=== PATIENT | male | born 1975 | race African-American/Black ===

== ENCOUNTER 2020-10-23 23:02 | Inpatient (IN) | payer SELFPAY ==
[2020-10-23] MEDS ORDERED: levETIRAcetam 500 MG/100 ML PREMIX BAG ONE (23:26)
[2020-10-23] MEDS ORDERED: Lorazepam 2 MG/ML VIAL ONE ×2 (23:26→23:38)
[2020-10-23] MEDS ORDERED: Diazepam 5 MG TAB ONE (23:44)
[2020-10-24 00:23] LABS: #Lymphocytes 0.8 thou/uL (1.20-3.40); #Monocytes 0.9 thou/uL (0.11-0.59); #Neutrophils 6.8 thou/uL (1.40-6.50); %Basophils 0.5 % (0.0-1.0); %Eosinophils 0.2 % (0.0-10.0); %Lymphocytes 9.8 % (21.0-51.0); %Monocytes 10.7 % (0.0-10.0); %Neutrophils 78.8 % (42.0-75.0); Mean Corpuscular HGB CONC 34.5 g/dL (32.0-36.0); Mean Corpuscular Hemoglobin 34.7 pg (27.0-31.0); Mean Platelet Volume 8.3 fL (7.4-10.4); Platelet Count 127 thou/uL (130-400); RBC Distribution Width 13.9 % (11.5-14.5); Red Blood Cell (RBC) Count 3.74 mill/uL (4.70-6.10); White Blood Cell (WBC) Count 8.6 thou/uL (4.8-10.8)
[2020-10-24 00:55] LABS: ALT (SGPT) 20 U/L (8-55); AST (SGOT) 73 U/L (5-34); Albumin 3.9 g/dL (3.5-5.0); Alkaline Phosphatase 112 U/L (40-110); Anion Gap 28 mmol/L (10-20); BUN (Urea Nitrogen) 5 mg/dL (8.9-20.6); Bilirubin, Total 0.7 mg/dL (0.2-1.2); Calc. Creatinine Clearance 0 mL/min (70-130); Carbon Dioxide 12 mmol/L (22-29); Chloride 103 mmol/L (98-107); Globulin 3.1 g/dL (2.4-3.5); Glucose 113 mg/dL (70-105); Potassium 3.5 mmol/L (3.5-5.1); Sodium 139 mmol/L (136-145)
[2020-10-24 01:05] LABS: Acetaminophen Less than 6.0 mcg/mL (10.0-30.0); Alcohol Less than 10 mg/dL (Less than 10); Salicylate Less than 8.0 mg/dL (15.0-30.0)
[2020-10-24 02:06] LABS: Amphetamine Not Detected (NotDetected); Barbiturates Screen Not Detected (NotDetected); Benzodiazepine Screen Not Detected (NotDetected); Cocaine Metabolite Screen Not Detected (NotDetected); Medtox Control Line Valid? VALID (VALID); Medtox Reader # READER 4; Methadone Not Detected (NotDetected); Methamphetamine Not Detected (NotDetected); Opiate Screen Not Detected (NotDetected); Oxycodone Screen Not Detected (NotDetected); Phencyclidine (PCP) Not Detected (NotDetected); THC/Cannabinoid Screen Not Detected (NotDetected); Tricyclic Screen Not Detected (NotDetected)
[2020-10-24] MEDS ORDERED: Ondansetron ODT 4 MG TAB PO PRN (06:20)
[2020-10-24] MEDS ORDERED: Ondansetron PF 4 MG/2 ML Vial IVP PRN (06:20)
--- NOTE | 2020-10-24 06:38 | PDOC.HHP ---
Hospitalist HPI Seizures History of Present Illness: This is a 45-year-old male patient hypertension and alcohol abuse who presents o n account of his seizure. He had a fair seizure at home which was witnessed by his . He notes that he only bit his tongue. According to the EMS records he had a seizure for about 2 minutes with high blood pressures of systolic about 235 for which he received labetalol with improvement. His glucose at the time was 117. On arrival in the ED he had another episode of seizure which was witnessed. His vitals were 201/126, pulse 115, temperature 98.5 and saturating 1% on room air. His labs showed anemia of 13.0 platelets 127 bicarb 12 glucose 113 and anion gap was 24 urine drug screen salicylate and acetaminophen levels were normal. Alcohol level was less than 10. Patient notes that his last drink was about a day ago consisting of 2 beers. He however is a chronic alcohol user and drinks every day. No acute events were noted on CT head and neck patient received 1 L bolus normal saline 10 mg diazepam and lorazepam in relation to his seizures. Patient has been seizure-free since his been in the ED. Allergies/Adverse Reactions: Allergy/AdvReac Type Severity Reaction Status Date / Time lisinopril Allergy Verified 04/11/15 07:06 Home Medications: Medication Instructions Recorded Confirmed Type Amlodipine [Norvasc] 10 mg PO DAILY #0 tab 04/11/15 Rx Metoprolol Tartrate 25 mg PO BID #0 tab 04/11/15 Rx Pantoprazole [Protonix] 40 mg PO QAM #0 tab 04/11/15 Rx predniSONE 10 mg PO QAM-WM #0 tab 04/11/15 Rx Past History: PMHx: Alcoholism, hypertension PSHx: Skin graft to fluids. FHx: None of significance Social: Alcohol abuse, ongoing smoker, denies drug use. Hospitalist HPI ROS Constitutional: reports: weakness, malaise. denies: fever, chills, sweats Respiratory: denies: cough, shortness of breath, hemoptysis, SOB with excertion Cardiovascular: denies: chest pain, palpitations, orthopnea, paroxysmal noc. dyspnea Genitourinary: denies: dysuria, frequency, incontinence, hematuria Musculoskeletal: denies: neck pain, shoulder pain, arm pain Neurological: denies: weakness, numbness, incoordination All other systems reviewed; all pertinent +/- noted in HPI/Subj Hospitalist Exam General Appearance: awake alert, ill appearing General - other findings: Sluggish but in no acute distress Eye: PERRL, anicteric sclera ENT: normocephalic atraumatic Heart: RRR, no murmur, no gallops, no rubs Respiratory: CTAB, no wheezes, no rales, no ronchi Gastrointestinal: soft, non-tender, non-distended, normal bowel sounds Extremities: no cyanosis, no clubbing, no edema Neurological: cranial nerve grossly intact, no weakness, no focal deficits Neurological - other findings: Bilateral tremors in upper limbs Psychiatric: normal affect, normal behavior, A&O x 3 Hospitalist Results Result Diagrams: 10/24/20 00:05 10/24/20 00:05 Lab results: Laboratory Last Values WBC 8.6 thou/uL (4.8-10.8) 10/24/20 00:05 RBC 3.74 mill/uL (4.70-6.10) L 10/24/20 00:05 Hgb 13.0 g/dL (14.0-18.0) L 10/24/20 00:05 Hct 37.7 % (42.0-52.0) L 10/24/20 00:05 MCV 101.0 fL (78.0-98.0) H 10/24/20 00:05 MCH 34.7 pg (27.0-31.0) H 10/24/20 00:05 MCHC 34.5 g/dL (32.0-36.0) 10/24/20 00:05 RDW 13.9 % (11.5-14.5) 10/24/20 00:05 Plt Count 127 thou/uL (130-400) L 10/24/20 00:05 MPV 8.3 fL (7.4-10.4) 10/24/20 00:05 Neutrophils % 78.8 % (42.0-75.0) H 10/24/20 00:05 Lymphocytes % 9.8 % (21.0-51.0) L 10/24/20 00:05 Monocytes % 10.7 % (0.0-10.0) H 10/24/20 00:05 Eosinophils % 0.2 % (0.0-10.0) 10/24/20 00:05 Basophils % 0.5 % (0.0-1.0) 10/24/20 00:05 Neutrophils # 6.8 thou/uL (1.40-6.50) H 10/24/20 00:05 Lymphocytes # 0.8 thou/uL (1.20-3.40) L 10/24/20 00:05 Monocytes # 0.9 thou/uL (0.11-0.59) H 10/24/20 00:05 Eosinophils # 0.0 thou/uL (0.0-0.7) 10/24/20 00:05 Basophils # 0.0 thou/uL (0.0-0.2) 10/24/20 00:05 Sodium 139 mmol/L (136-145) 10/24/20 00:05 Potassium 3.5 mmol/L (3.5-5.1) 10/24/20 00:05 Chloride 103 mmol/L (98-107) 10/24/20 00:05 Carbon Dioxide 12 mmol/L (22-29) L 10/24/20 00:05 Anion Gap 28 mmol/L (10-20) H 10/24/20 00:05 BUN 5 mg/dL (8.9-20.6) L 10/24/20 00:05 Creatinine 0.75 mg/dL (0.7-1.3) 10/24/20 00:05 Estimated GFR (MDRD) Greater than 90 10/24/20 00:05 Glucose 113 mg/dL (70-105) H 10/24/20 00:05 Calcium 9.0 mg/dL (7.8-10.44) 10/24/20 00:05 Total Bilirubin 0.7 mg/dL (0.2-1.2) 10/24/20 00:05 AST 73 U/L (5-34) H 10/24/20 00:05 ALT 20 U/L (8-55) 10/24/20 00:05 Alkaline Phosphatase 112 U/L (40-110) H 10/24/20 00:05 Serum Total Protein 7.0 g/dL (6.0-8.3) 10/24/20 00:05 Albumin 3.9 g/dL (3.5-5.0) 10/24/20 00:05 Globulin 3.1 g/dL (2.4-3.5) 10/24/20 00:05 Albumin/Globulin Ratio 1.3 g/dL (1.2-2.2) 10/24/20 00:05 Salicylates Less than 8.0 mg/dL (15.0-30.0) L 10/24/20 00:05 Urine Opiates Screen Not Detected (NotDetected) 10/24/20 01:45 Ur Oxycodone Screen Not Detected (NotDetected) 10/24/20 01:45 Urine Methadone Screen Not Detected (NotDetected) 10/24/20 01:45 Ur Propoxyphene Screen Not Detected (NotDetected) 10/24/20 01:45 Acetaminophen Less than 6.0 mcg/mL (10.0-30.0) L 10/24/20 00:05 Ur Barbiturates Screen Not Detected (NotDetected) 10/24/20 01:45 Ur Tricyclics Screen Not Detected (NotDetected) 10/24/20 01:45 Ur Phencyclidine Scrn Not Detected (NotDetected) 10/24/20 01:45 Ur Amphetamines Screen Not Detected (NotDetected) 10/24/20 01:45 U Methamphetamines Scrn Not Detected (NotDetected) 10/24/20 01:45 U Benzodiazepines Scrn Not Detected (NotDetected) 10/24/20 01:45 U Cocaine Metab Screen Not Detected (NotDetected) 10/24/20 01:45 U Cannabinoids Screen Not Detected (NotDetected) 10/24/20 01:45 Drug Screen Comment () 10/24/20 01:45 Plasma Alcohol Less than 10 mg/dL (Less than 10) 10/24/20 00:05 Hospitalist H&P A/P Plan: This is a 45-year-old male patient with a history of hypertension and alcoholism who presents with recurrent seizures. Alcohol withdrawal seizures Last drink was about a day ago likely alcohol withdrawal We will place the patient on withdrawal protocol Monitor closely. Hypertension As needed hydralazine/labetalol CODE STATUS full code VT prophylaxis
[2020-10-24] MEDS ORDERED: hydrALAZINE 20 MG/ML VIAL SLOW IVP PRN (06:40)
[2020-10-24] MEDS ORDERED: Labetalol HCl 100 MG/20 ML VIAL SLOW IVP PRN (06:41)
--- NOTE | 2020-10-24 07:54 | CT ---
Exam: Head CT without contrast HISTORY: Hypertension and seizure COMPARISON: none FINDINGS: Hemorrhage: No intraparenchymal hemorrhage or extra-axial hematoma. Brain parenchyma: Cortical dueñas-white matter differentiation is preserved. No mass effect or midline shift. Basilar cisterns are patent.There are white matter hypodensities. Ventricular system: Ventricles and sulci are patent and symmetric. Calvarium: Intact. Sinuses and mastoid air cells: Adequate aeration. IMPRESSION: No acute intracranial process. There are white matter hypodensities. Findings may be due to chronic s mall vessel ischemic changes.
--- NOTE | 2020-10-24 08:26 | RAD ---
Exam: Chest one view HISTORY:Hypertension Comparison: 04/05/2012 FINDINGS: Cardiac silhouette: Normal Aorta: Unremarkable Pulmonary vessels: Normal Costophrenic angles: Clear LUNGS: No masses or consolidation. Pneumothorax: None Osseous abnormalities: None IMPRESSION: No acute cardiopulmonary process.
[2020-10-24 11:19] LABS: SARS-CoV-2 PCR by NAA Not Detected (NotDetected)
[2020-10-24] MEDS ORDERED: Diazepam 5 MG TAB PO PRN (12:37)
[2020-10-24] MEDS ORDERED: Thiamine HCl 200 MG/2 ML VIAL IM SCH (12:45)
[2020-10-24] MEDS ORDERED: Amlodipine 5 MG TAB ONE (12:51)
[2020-10-24] MEDS ORDERED: Enoxaparin Sodium 40 MG/0.4 ML SYRINGE ONE (12:51)
[2020-10-24] MEDS ORDERED: Metoprolol Tartrate 25 MG TAB ONE (12:51)
[2020-10-24] MEDS: Metoprolol Tartrate 25 MG TAB PO SCH ×2 (12:59→20:06)
[2020-10-24] MEDS: Amlodipine 5 MG TAB PO SCH (12:59)
[2020-10-24] MEDS: Enoxaparin Sodium 40 MG/0.4 ML SYRINGE SC SCH (12:59)
--- NOTE | 2020-10-24 14:25 | PDOC.EEG ---
Neurology EEG Report - Report Report: This EEG was performed using 24 channel [employer] video digital EEG machine with 24 disc electrodes. Digital analysis of the EEG was done for Yuan and seizure detection which revealed no abnormalities. Background: Ther posterior background rhythm is 10-12 Hz. Minimal reactivity seen with eye opening and closure. Excessive beta activity seen intermixed with the background. Hyperventilation: Not performed Photic stimulation: No significant response Sleep: Drowsiness is observed EEG diagnosis: Normal awake and drowsy EEG.
--- NOTE | 2020-10-24 14:51 | PDOC.EVN ---
Event Note - Event Note Event Note: Patient seen and examined in the afternoon. He is still quite shaky but is less altered than this morning. He states that he feels better after treatment with benzodiazepines. Patient has had urinary incontinence and is currently in a brief. He was try to get out of the bed earlier in the morning but is now much calmer. ASE protocol has been written for. We will continue monitoring and treating withdrawal symptoms. No further seizures.
[2020-10-24 15:40] VITALS: BMI 15.8
[2020-10-25 05:52] LABS: Anion Gap 16 mmol/L (10-20); BUN (Urea Nitrogen) 4 mg/dL (8.9-20.6); Calc. Creatinine Clearance 111 mL/min (70-130); Calcium 9.3 mg/dL (7.8-10.44); Carbon Dioxide 23 mmol/L (22-29); Chloride 99 mmol/L (98-107); Glucose 89 mg/dL (70-105); Potassium 3.2 mmol/L (3.5-5.1); Sodium 135 mmol/L (136-145)
[2020-10-25 06:47] LABS: Band 5 % (5-11); Eosinophils 1 % (0-10); Hemoglobin 13.2 g/dL (14.0-18.0); Lymphocytes 28 % (21-51); MDiff Complete? YES; Mean Corpuscular HGB CONC 33.2 g/dL (32.0-36.0); Mean Corpuscular Hemoglobin 32.4 pg (27.0-31.0); Mean Corpuscular Volume 97.4 fL (78.0-98.0); Mean Platelet Volume 8.4 fL (7.4-10.4); Monocytes 11 % (0-10); Neutrophil 55 % (42-75); Platelet Count 141 thou/uL (130-400); RBC Distribution Width 13.8 % (11.5-14.5); Red Blood Cell (RBC) Count 4.07 mill/uL (4.70-6.10); White Blood Cell (WBC) Count 5.5 thou/uL (4.8-10.8)
[2020-10-25] MEDS: Thiamine 100 MG TAB PO SCH (08:03)
[2020-10-25] MEDS: Magnesium Oxide 400 MG TAB PO SCH (08:03)
[2020-10-25] MEDS: Amlodipine 5 MG TAB PO SCH (08:04)
[2020-10-25] MEDS: Enoxaparin Sodium 40 MG/0.4 ML SYRINGE SC SCH (08:04)
[2020-10-25] MEDS: Metoprolol Tartrate 25 MG TAB PO SCH ×2 (08:04→21:29)
[2020-10-25] MEDS: Folic Acid 1 MG TAB PO SCH (08:04)
[2020-10-25] MEDS: Multivitamin W/ Minerals 1 TAB PO SCH (08:04)
--- NOTE | 2020-10-25 12:59 | PDOC.HOSPP ---
- Subjective Encounter Date: 10/25/20 Encounter Time: 12:59 Subjective: F/u: seizure The patient is confused, does not know why he is in the hospital. He told the nurse he thought he was [place]. The patient states he quit drinking 8 years ago, but he actually drinks about 2 beers daily. He had seizure at home, but patient states he hasn't had a seizure since August. He does not know if he takes seizure medicine at home or not. He denies headaches, tingling in his arms or legs, nausea, vomiting Per nurse, he is very figdety and trying to get up out of bed all the time Attempted calling the and it went to [facility] - Objective Vital Signs & Weight: Vital Signs (12 hours) Temp Pulse Resp BP BP Pulse Ox 10/25/20 12:11 145/76 H 10/25/20 11:03 97.6 F 85 20 145/76 H 99 10/25/20 08:04 91 142/95 H 98 10/25/20 07:32 98.5 F 89 20 142/95 H 98 10/25/20 05:05 98.3 F 91 18 130/63 100 Weight Weight 120 lb I&O: 10/24/20 10/25/20 10/26/20 06:59 06:59 06:59 Intake Total 1020 Balance 1020 Result Diagrams: 10/25/20 05:25 10/25/20 05:25 Hospitalist ROS - Review of Systems Constitutional: denies: fever, chills - Medication Medications: Active Medications Generic Name Dose Route Start Last Admin Trade Name Jereq PRN Reason Stop Dose Admin Amlodipine Besylate 10 mg 10/24/20 09:00 10/25/20 08:04 Amlodipine 5 Mg Tab PO 10 mg DAILY JOHN Administration Enoxaparin Sodium 40 mg 10/24/20 09:00 10/25/20 08:04 Enoxaparin Sodium 40 Mg/0.4 Ml Syringe SC 40 mg 0900 JOHN Administration Folic Acid 1 mg 10/25/20 09:00 10/25/20 08:04 Folic Acid 1 Mg Tab PO 1 mg DAILY JOHN Administration Iron/Minerals/Multivitamins 1 tab 10/25/20 09:00 10/25/20 08:04 Multivitamin W/ Minerals 1 Tab PO 1 tab DAILY JOHN Administration Magnesium Oxide 400 mg 10/25/20 09:00 10/25/20 08:03 Magnesium Oxide 400 Mg Tab PO 400 mg DAILY JOHN Administration Metoprolol Tartrate 25 mg 10/24/20 09:00 10/25/20 08:04 Metoprolol Tartrate 25 Mg Tab PO 25 mg BID JOHN Administration Pantoprazole Sodium 40 mg 10/24/20 09:00 10/25/20 08:03 Pantoprazole 40 Mg Tab PO 40 mg QAM JOHN Administration Thiamine HCl 100 mg 10/25/20 09:00 10/25/20 08:03 Thiamine 100 Mg Tab PO 100 mg DAILY JOHN Administration Hospitalist Exam Vitals: Vital Signs (12 hours) Temp Pulse Resp BP BP Pulse Ox 10/25/20 12:11 145/76 H 10/25/20 11:03 97.6 F 85 20 145/76 H 99 10/25/20 08:04 91 142/95 H 98 10/25/20 07:32 98.5 F 89 20 142/95 H 98 10/25/20 05:05 98.3 F 91 18 130/63 100 Weight Weight 120 lb General Appearance: NAD, awake alert General - other findings: malnourished Eye: PERRL, anicteric sclera ENT: normocephalic atraumatic, no oropharyngeal lesions Neck: no JVD Heart: RRR, no murmur, no gallops, no rubs Respiratory: CTAB, no wheezes, no rales, no ronchi Gastrointestinal: soft, non-tender, non-distended, normal bowel sounds Extremities: no cyanosis, no clubbing, no edema Skin: normal turgor, no lesions, no rashes Neurological: cranial nerve grossly intact, normal sensation to touch, no weakness Musculoskeletal: normal tone, normal strength, no muscle wasting Psychiatric: normal affect, normal behavior, A&O x 3 Hosp A/P - Plan CT brain: negative Chest X ray: normal This is a 45 year old male with past medical history of alcoholism, seizure in the past who presented with witness seizure at home Alcohol withdrawal - continue ASE protocol, thiamine, and folic acid Acute encephalopathy - possibly postictal from seizure or from alcohol or dementia. CT negative Hypokalemia potassium 3.2, will replace with 40 meq Marcocytic anemia - Hb 10, check folate/B12/TSH Seizure - unclear if patient stopped drinking alcohol abruptly and that precipitated seizure? Neurology consulted, EEG has been ordered. Ct head negative Hypertension - continue amlodipine and metoprolol
[2020-10-25] MEDS ORDERED: Potassium Chloride 20 MEQ TAB PO SCH (13:00)
--- NOTE | 2020-10-25 14:37 | CON ---
NEUROLOGY CONSULTATION DATE OF CONSULTATION: 10/25/2020 REASON FOR CONSULTATION: Seizures. HISTORY OF PRESENT ILLNESS: Mr. Kirkland is a 45-year-old male with medical history significant for hypertension and alcohol abuse presented to the emergency room because of a seizure. The seizure was witnessed on 10/24/2020. The seizure was witnessed by his during which he bit his tongue. According to the EMS records, he had a seizure which lasted for about 2 minutes in the setting of hypertensive emergency with systolic about 235, during which he received labetalol which improved his symptoms. His glucose at that time was 117. When he arrived to the emergency room, he had another episode of seizures, during which his vitals were 200/126, pulse 115, temperature 98.5. His alcohol level was less than 10. Per the patient, his last drink was about a day ago consisting of 2 beers. He does have a history of chronic alcohol abuse, drinks on a daily basis. Head CT was done, which was negative for acute intracranial pathology. He was given saline, diazepam, and lorazepam to control his seizures and admitted for observation. The patient has been seizure-free since admission to the hospital. ALLERGIES: LISINOPRIL. HOME MEDICATIONS: 1. Amlodipine 10 mg p.o. daily. 2. Metoprolol tartrate 25 mg p.o. b.i.d. 3. Protonix 40 mg p.o. q.a.m. 4. Prednisone 10 mg p.o. q.a.m. Thursday, Thursday. PAST MEDICAL HISTORY: Alcoholism, hypertension. PAST SURGICAL HISTORY: Skin grafts. FAMILY HISTORY: No family history of seizures. SOCIAL HISTORY: The patient is , lives with his . He has a history of smoking and alcohol abuse. Denies illegal drug abuse. REVIEW OF SYSTEMS: All systems reviewed and were negative except for the pertinent positives and negatives mentioned in the HPI. Allergies/Adverse Reactions: Allergy/AdvReac Type Severity Reaction Status Date / Time lisinopril Allergy Verified 04/11/15 07:06 Home Medications: Medication Instructions Recorded Confirmed Type Amlodipine [Norvasc] 10 mg PO DAILY #0 tab 04/11/15 Rx Metoprolol Tartrate 25 mg PO BID #0 tab 04/11/15 Rx Pantoprazole [Protonix] 40 mg PO QAM #0 tab 04/11/15 Rx predniSONE 10 mg PO QAM-WM #0 tab 04/11/15 Rx Vital Signs & Weight: Vital Signs (12 hours) Temp Pulse Resp BP BP Pulse Ox 10/25/20 12:11 145/76 H 10/25/20 11:03 97.6 F 85 20 145/76 H 99 10/25/20 08:04 91 142/95 H 98 10/25/20 07:32 98.5 F 89 20 142/95 H 98 10/25/20 05:05 98.3 F 91 18 130/63 100 Weight Weight 120 lb I&O: 10/24/20 10/25/20 10/26/20 06:59 06:59 06:59 Intake Total 1020 Balance 1020 Active Medications Generic Name Dose Route Start Last Admin Trade Name Freq PRN Reason Stop Dose Admin Amlodipine Besylate 10 mg 10/24/20 09:00 10/25/20 08:04 Amlodipine 5 Mg Tab PO 10 mg DAILY JOHN Administration Enoxaparin Sodium 40 mg 10/24/20 09:00 10/25/20 08:04 Enoxaparin Sodium 40 Mg/0.4 Ml Syringe SC 40 mg 0900 JOHN Administration Folic Acid 1 mg 10/25/20 09:00 10/25/20 08:04 Folic Acid 1 Mg Tab PO 1 mg DAILY JOHN Administration Iron/Minerals/Multivitamins 1 tab 10/25/20 09:00 10/25/20 08:04 Multivitamin W/ Minerals 1 Tab PO 1 tab DAILY JOHN Administration Magnesium Oxide 400 mg 10/25/20 09:00 10/25/20 08:03 Magnesium Oxide 400 Mg Tab PO 400 mg DAILY JOHN Administration Metoprolol Tartrate 25 mg 10/24/20 09:00 10/25/20 08:04 Metoprolol Tartrate 25 Mg Tab PO 25 mg BID JOHN Administration Pantoprazole Sodium 40 mg 10/24/20 09:00 10/25/20 08:03 Pantoprazole 40 Mg Tab PO 40 mg QAM JOHN Administration Thiamine HCl 100 mg 10/25/20 09:00 10/25/20 08:03 Thiamine 100 Mg Tab PO 100 mg DAILY JOHN Administration PHYSICAL EXAMINATION: General - Alert, awake male, in no acute distress. Eye: PERRL, anicteric sclera ENT: normocephalic atraumatic Heart: RRR, no murmur, no gallops, no rubs Respiratory: CTAB, no wheezes, no rales, no ronchi Gastrointestinal: soft, non-tender, non-distended, normal bowel sounds Extremities: no cyanosis, no clubbing, no edema Neurological: cranial nerve grossly intact, no weakness, no focal deficits Neurological - other findings: Bilateral tremors in upper limbs Psychiatric: normal affect, normal behavior, A&O x 3 Mental status, the patient is alert and oriented to person, place, and time. Recent and remote memory intact. Speech is clear. Cranial nerves II through XII intact. Motor, muscle tone and bulk are normal. Moving all 4 extremities equally and symmetrically. Strength 5/5 bilaterally. Sensory intact. Cerebellar, finger-nose testing intact. Gait deferred due to the patient's safety reason. DATA REVIEWED: I reviewed the labs, which were significant for anemia and hyperglycemia. Head CT did not reveal any acute intracranial pathology. Lab results: Laboratory Last Values WBC 8.6 thou/uL (4.8-10.8) 10/24/20 00:05 RBC 3.74 mill/uL (4.70-6.10) L 10/24/20 00:05 Hgb 13.0 g/dL (14.0-18.0) L 10/24/20 00:05 Hct 37.7 % (42.0-52.0) L 10/24/20 00:05 MCV 101.0 fL (78.0-98.0) H 10/24/20 00:05 MCH 34.7 pg (27.0-31.0) H 10/24/20 00:05 MCHC 34.5 g/dL (32.0-36.0) 10/24/20 00:05 RDW 13.9 % (11.5-14.5) 10/24/20 00:05 Plt Count 127 thou/uL (130-400) L 10/24/20 00:05 MPV 8.3 fL (7.4-10.4) 10/24/20 00:05 Neutrophils % 78.8 % (42.0-75.0) H 10/24/20 00:05 Lymphocytes % 9.8 % (21.0-51.0) L 10/24/20 00:05 Monocytes % 10.7 % (0.0-10.0) H 10/24/20 00:05 Eosinophils % 0.2 % (0.0-10.0) 10/24/20 00:05 Basophils % 0.5 % (0.0-1.0) 10/24/20 00:05 Neutrophils # 6.8 thou/uL (1.40-6.50) H 10/24/20 00:05 Lymphocytes # 0.8 thou/uL (1.20-3.40) L 10/24/20 00:05 Monocytes # 0.9 thou/uL (0.11-0.59) H 10/24/20 00:05 Eosinophils # 0.0 thou/uL (0.0-0.7) 10/24/20 00:05 Basophils # 0.0 thou/uL (0.0-0.2) 10/24/20 00:05 Sodium 139 mmol/L (136-145) 10/24/20 00:05 Potassium 3.5 mmol/L (3.5-5.1) 10/24/20 00:05 Chloride 103 mmol/L (98-107) 10/24/20 00:05 Carbon Dioxide 12 mmol/L (22-29) L 10/24/20 00:05 Anion Gap 28 mmol/L (10-20) H 10/24/20 00:05 BUN 5 mg/dL (8.9-20.6) L 10/24/20 00:05 Creatinine 0.75 mg/dL (0.7-1.3) 10/24/20 00:05 Estimated GFR (MDRD) Greater than 90 10/24/20 00:05 Glucose 113 mg/dL (70-105) H 10/24/20 00:05 Calcium 9.0 mg/dL (7.8-10.44) 10/24/20 00:05 Total Bilirubin 0.7 mg/dL (0.2-1.2) 10/24/20 00:05 AST 73 U/L (5-34) H 10/24/20 00:05 ALT 20 U/L (8-55) 10/24/20 00:05 Alkaline Phosphatase 112 U/L (40-110) H 10/24/20 00:05 Serum Total Protein 7.0 g/dL (6.0-8.3) 10/24/20 00:05 Albumin 3.9 g/dL (3.5-5.0) 10/24/20 00:05 Globulin 3.1 g/dL (2.4-3.5) 10/24/20 00:05 Albumin/Globulin Ratio 1.3 g/dL (1.2-2.2) 10/24/20 00:05 Salicylates Less than 8.0 mg/dL (15.0-30.0) L 10/24/20 00:05 Urine Opiates Screen Not Detected (NotDetected) 10/24/20 01:45 Ur Oxycodone Screen Not Detected (NotDetected) 10/24/20 01:45 Urine Methadone Screen Not Detected (NotDetected) 10/24/20 01:45 Ur Propoxyphene Screen Not Detected (NotDetected) 10/24/20 01:45 Acetaminophen Less than 6.0 mcg/mL (10.0-30.0) L 10/24/20 00:05 Ur Barbiturates Screen Not Detected (NotDetected) 10/24/20 01:45 Ur Tricyclics Screen Not Detected (NotDetected) 10/24/20 01:45 Ur Phencyclidine Scrn Not Detected (NotDetected) 10/24/20 01:45 Ur Amphetamines Screen Not Detected (NotDetected) 10/24/20 01:45 U Methamphetamines Scrn Not Detected (NotDetected) 10/24/20 01:45 U Benzodiazepines Scrn Not Detected (NotDetected) 10/24/20 01:45 U Cocaine Metab Screen Not Detected (NotDetected) 10/24/20 01:45 U Cannabinoids Screen Not Detected (NotDetected) 10/24/20 01:45 Drug Screen Comment () 10/24/20 01:45 Plasma Alcohol Less than 10 mg/dL (Less than 10) 10/24/20 00:05 ASSESSMENT AND PLAN: Mr. Jeremiah Kirkland is a 45-year-old male who presented with a history of recurrent seizures in the setting of alcohol abuse. There is a concern about alcohol withdrawal seizures. EEG is completed and reviewed, which was negative for seizure activity. Consider MRI of the brain to evaluate for seizure focus. If the MRI of the brain is negative, we will not start him on seizure medication. Alcohol cessation discussed with the patient. Continue neuro checks every 4 hours. Observe seizure precaution. Ativan 2 mg IV for seizure greater than 2 minutes. CIWA protocol. PT/OT. DVT prophylaxis. We will continue to follow. Strict control of blood pressure. We will continue to follow. Plan discussed in detail with the nursing staff, the patient, and also with the primary attending, Dr. Griggs Thank you for the consult. Job ID: [id number] MTDD
[2020-10-25] MEDS ORDERED: FLU VACC QS2020-21(6MOS UP)/PF 60 MCG/0.5 ML SYRINGE IM ONE (15:45)
[2020-10-25] MEDS: Lorazepam 2 MG/ML VIAL SLOW IVP PRN (16:51)
--- NOTE | 2020-10-25 17:23 | MRI ---
MRI OF THE BRAIN WITHOUT CONTRAST: 10/25/20 HISTORY: Seizure and confusion. FINDINGS: Correlation is made with the previous day's CT scan. No restricted diffusion is seen. No evidence of infarct, hemorrhage, midline shift, or abnormal extra -axial fluid collections are seen. Multiple foci of T2 prolongation in the periventricular white mitali er are likely due to chronic small vessel ischemic disease. The ventricular size is appropriate and t he basilar cisterns patent. No blood products are seen on the gradient echo sequences. The visualized paranasal sinuses and masto id air cells are well aerated. IMPRESSION: No evidence of acute intracranial process. POS: NELLIEA
[2020-10-25] MEDS ORDERED: Haloperidol 1 MG TAB PO PRN (19:18)
[2020-10-25] MEDS: Diazepam 5 MG TAB PO PRN (21:35)
[2020-10-26] MEDS: Diazepam 5 MG TAB PO PRN ×3 (00:37→16:49)
[2020-10-26] MEDS: Lorazepam 2 MG/ML VIAL SLOW IVP PRN ×3 (04:16→13:38)
[2020-10-26] MEDS ORDERED: Sodium Chloride 0.9% 1,000 ML IV SCH (05:30)
[2020-10-26 06:07] LABS: Anion Gap 18 mmol/L (10-20); BUN (Urea Nitrogen) 6 mg/dL (8.9-20.6); Calc. Creatinine Clearance 108 mL/min (70-130); Calcium 9.5 mg/dL (7.8-10.44); Carbon Dioxide 23 mmol/L (22-29); Chloride 101 mmol/L (98-107); Glucose 90 mg/dL (70-105); Potassium 3.5 mmol/L (3.5-5.1); Sodium 138 mmol/L (136-145)
[2020-10-26 06:30] LABS: Thyroid Stimulating Hormone 1.5977 uIU/mL (0.35-4.94)
[2020-10-26] MEDS: Magnesium Oxide 400 MG TAB PO SCH (08:35)
[2020-10-26] MEDS: Metoprolol Tartrate 25 MG TAB PO SCH ×2 (08:35→21:09)
[2020-10-26] MEDS: Folic Acid 1 MG TAB PO SCH (08:35)
[2020-10-26] MEDS: Enoxaparin Sodium 40 MG/0.4 ML SYRINGE SC SCH (08:36)
[2020-10-26] MEDS: Multivitamin W/ Minerals 1 TAB PO SCH (08:36)
[2020-10-26] MEDS: Thiamine 100 MG TAB PO SCH (08:36)
[2020-10-26] MEDS: Amlodipine 5 MG TAB PO SCH (08:36)
[2020-10-26] MEDS ORDERED: cloNIDine 0.1 MG TAB PO PRN (11:49)
--- NOTE | 2020-10-26 15:11 | PDOC.HOSPP ---
- Subjective Encounter Date: 10/26/20 Encounter Time: 08:00 Subjective: F/u: withdrawal The patient is very agitated and having extensive tremors. Last night he was verbally abusive to nurses, tried to get out of bed. He required antipsychotic overnight Per , he drinks 1/2 gallon of liquor daily + 2 beers. The patient states he stoped drinking two days ago, but states he never stopped. She says he had one seizure last year which was attributed to alcohol withdrawal, but states that he didn't stop drinking that time either. Patient's also states patient drags his right foot. Said he had a cath recently and was wondering whether his artery was clogged in his groin. - Objective Vital Signs & Weight: Vital Signs (12 hours) Temp Pulse Resp BP BP Pulse Ox 10/26/20 12:00 155/101 H 10/26/20 11:23 98.6 F 100 18 155/101 H 97 10/26/20 08:00 173/100 H 10/26/20 07:50 99.4 F 105 H 18 173/100 H 98 10/26/20 04:00 98.1 F 106 H 22 H 160/98 H 98 Weight Admit Weight 120 lb Weight 120 lb I&O: 10/25/20 10/26/20 10/27/20 06:59 06:59 06:59 Intake Total 1020 Balance 1020 Result Diagrams: 10/25/20 05:25 10/26/20 05:30 Hospitalist ROS - Review of Systems Constitutional: denies: fever, chills - Medication Medications: Active Medications Generic Name Dose Route Start Last Admin Trade Name Freq PRN Reason Stop Dose Admin Amlodipine Besylate 10 mg 10/24/20 09:00 10/26/20 08:36 Amlodipine 5 Mg Tab PO 10 mg DAILY JOHN Administration Diazepam 5 mg 10/25/20 04:00 10/26/20 06:00 Diazepam 5 Mg Tab PO 5 mg Q4H PRN Administration FOR ASE 10 OR GREATER Enoxaparin Sodium 40 mg 10/24/20 09:00 10/26/20 08:36 Enoxaparin Sodium 40 Mg/0.4 Ml Syringe SC 40 mg 0900 JOHN Administration Folic Acid 1 mg 10/25/20 09:00 10/26/20 08:35 Folic Acid 1 Mg Tab PO 1 mg DAILY JOHN Administration Iron/Minerals/Multivitamins 1 tab 10/25/20 09:00 10/26/20 08:36 Multivitamin W/ Minerals 1 Tab PO 1 tab DAILY JOHN Administration Lorazepam 1 mg 10/24/20 12:34 10/26/20 13:38 Lorazepam 2 Mg/Ml Vial SLOW IVP 1 mg Q4H PRN Administration Seizures/AGITATION Magnesium Oxide 400 mg 10/25/20 09:00 10/26/20 08:35 Magnesium Oxide 400 Mg Tab PO 400 mg DAILY JOHN Administration Metoprolol Tartrate 25 mg 10/24/20 09:00 10/26/20 08:35 Metoprolol Tartrate 25 Mg Tab PO 25 mg BID JOHN Administration Pantoprazole Sodium 40 mg 10/24/20 09:00 10/26/20 08:35 Pantoprazole 40 Mg Tab PO 40 mg QAM JOHN Administration Thiamine HCl 100 mg 10/25/20 09:00 10/26/20 08:36 Thiamine 100 Mg Tab PO 100 mg DAILY JOHN Administration Hospitalist Exam Vitals: Vital Signs (12 hours) Temp Pulse Resp BP BP Pulse Ox 10/26/20 12:00 155/101 H 10/26/20 11:23 98.6 F 100 18 155/101 H 97 10/26/20 08:00 173/100 H 10/26/20 07:50 99.4 F 105 H 18 173/100 H 98 10/26/20 04:00 98.1 F 106 H 22 H 160/98 H 98 Weight Admit Weight 120 lb Weight 120 lb General Appearance: NAD, awake alert Eye: PERRL, anicteric sclera ENT: normocephalic atraumatic, no oropharyngeal lesions Neck: no JVD Heart: RRR, no murmur, no gallops, no rubs Respiratory: CTAB, no wheezes, no rales, no ronchi Gastrointestinal: soft, non-tender, non-distended, normal bowel sounds Extremities: no cyanosis, no clubbing, no edema Extremities - other findings: femoral pulses intact Skin: normal turgor, no lesions, no rashes Neurological: cranial nerve grossly intact, normal sensation to touch, no weakness Neurological - other findings: very restless and tremulous Musculoskeletal: normal tone, normal strength, no muscle wasting Psychiatric: A&O x 3 Psychiatric - other findings: confused at times Hosp A/P - Plan CT brain: negative Chest X ray: normal This is a 45 year old male with past medical history of alcoholism, seizure in the past who presented with witness seizure at home #Alcohol withdrawal - continue ASE protocol, thiamine, and folic acid, patient's withdrawal symptoms seem worst today #Acute encephalopathy- improving #Seizures - possibly postictal from seizure or from alcohol or korsakoff. Does confabulate alot. CT negative, MRI negative - neurology consulted, recommending holding antiepileptics for now - continue haldol prn Right leg weakness - no neuro deficit noted on exam. PT to evaluate. to bring cath report from [facility] Hypokalemia -resolved Marcocytic anemia - Hb 10, folate/B12/TSH normal Hypertension - continue amlodipine and metoprolol
[2020-10-27] MEDS: Lorazepam 2 MG/ML VIAL SLOW IVP PRN (00:27)
[2020-10-27] MEDS: Enoxaparin Sodium 40 MG/0.4 ML SYRINGE SC SCH (08:28)
[2020-10-27] MEDS: Metoprolol Tartrate 25 MG TAB PO SCH ×2 (08:29→20:10)
[2020-10-27] MEDS: Amlodipine 5 MG TAB PO SCH (08:29)
[2020-10-27] MEDS: Folic Acid 1 MG TAB PO SCH (08:29)
[2020-10-27] MEDS: Thiamine 100 MG TAB PO SCH (08:29)
[2020-10-27] MEDS: Multivitamin W/ Minerals 1 TAB PO SCH (08:29)
[2020-10-27] MEDS: Magnesium Oxide 400 MG TAB PO SCH (08:29)
--- NOTE | 2020-10-27 13:04 | PDOC.HOSPP ---
- Subjective Encounter Date: 10/27/20 Encounter Time: 08:00 Subjective: Patient seen in follow-up for acute metabolic encephalopathy. He is sleepy but arousable, knows his name and date of but is otherwise not oriented. - Objective Vital Signs & Weight: Vital Signs (12 hours) Temp Pulse Resp BP BP Pulse Ox 10/27/20 12:00 97.9 F 89 16 146/82 H 99 10/27/20 08:00 165/107 H 10/27/20 07:25 97.8 F 102 H 18 165/107 H 96 10/27/20 04:16 97.8 F 96 18 157/108 H 99 Weight Admit Weight 120 lb Weight 120 lb I&O: 10/26/20 10/27/20 10/28/20 06:59 06:59 06:59 Intake Total 840 240 Balance 840 240 Result Diagrams: 10/25/20 05:25 10/26/20 05:30 Additional Labs: Labs and MAR reviewed by me Hospitalist ROS - Review of Systems ROS unobtainable: due to mental status - Medication Medications: Active Medications Generic Name Dose Route Start Last Admin Trade Name Freq PRN Reason Stop Dose Admin Amlodipine Besylate 10 mg 10/24/20 09:00 10/27/20 08:29 Amlodipine 5 Mg Tab PO 10 mg DAILY JOHN Administration Diazepam 5 mg 10/25/20 04:00 10/26/20 16:49 Diazepam 5 Mg Tab PO 5 mg Q4H PRN Administration FOR ASE 10 OR GREATER Enoxaparin Sodium 40 mg 10/24/20 09:00 10/27/20 08:28 Enoxaparin Sodium 40 Mg/0.4 Ml Syringe SC 40 mg 0900 JOHN Administration Folic Acid 1 mg 10/25/20 09:00 10/27/20 08:29 Folic Acid 1 Mg Tab PO 1 mg DAILY JOHN Administration Iron/Minerals/Multivitamins 1 tab 10/25/20 09:00 10/27/20 08:29 Multivitamin W/ Minerals 1 Tab PO 1 tab DAILY JOHN Administration Lorazepam 1 mg 10/24/20 12:34 10/27/20 00:27 Lorazepam 2 Mg/Ml Vial SLOW IVP 1 mg Q4H PRN Administration Seizures/AGITATION Magnesium Oxide 400 mg 10/25/20 09:00 10/27/20 08:29 Magnesium Oxide 400 Mg Tab PO 400 mg DAILY JOHN Administration Metoprolol Tartrate 25 mg 10/24/20 09:00 10/27/20 08:29 Metoprolol Tartrate 25 Mg Tab PO 25 mg BID JOHN Administration Pantoprazole Sodium 40 mg 10/24/20 09:00 10/27/20 08:29 Pantoprazole 40 Mg Tab PO 40 mg QAM JOHN Administration Thiamine HCl 100 mg 10/25/20 09:00 10/27/20 08:29 Thiamine 100 Mg Tab PO 100 mg DAILY JOHN Administration Hospitalist Exam Vitals: Vital Signs (12 hours) Temp Pulse Resp BP BP Pulse Ox 10/27/20 12:00 97.9 F 89 16 146/82 H 99 10/27/20 08:00 165/107 H 10/27/20 07:25 97.8 F 102 H 18 165/107 H 96 10/27/20 04:16 97.8 F 96 18 157/108 H 99 Weight Admit Weight 120 lb Weight 120 lb General - other findings: Sleepy but arousable Eye: anicteric sclera ENT: moist mucosa Neck: supple Heart: RRR Respiratory: CTAB Gastrointestinal: soft, non-tender Skin: no rashes Neurological - other findings: Unable to assess Psychiatric: oriented to person, lethargic Hosp A/P - Plan #Acute encephalopathy -Etiology unclear, could be related to alcohol withdrawal. #Alcohol withdrawal - continue ASE protocol, -Continue thiamine, and folic acid -Monitor for delirium tremens #Seizures -Appreciate neurology service input Right leg weakness -PT consulted Hypokalemia -resolved Marcocytic anemia -Stable Hypertension -Monitor vital signs and titrate antihypertensives as needed.
--- NOTE | 2020-10-27 15:16 | EKG ---
Test Reason : Blood Pressure : / mmHG Vent. Rate : 097 BPM Atrial Rate : 097 BPM P-R Int : 134 ms QRS Dur : 086 ms QT Int : 392 ms P-R-T Axes : 049 013 062 degrees QTc Int : 497 ms Normal sinus rhythm Voltage criteria for left ventricular hypertrophy Prolonged QT Abnormal ECG Confirmed by CAROLINE ARTIS M.D. ([id number]), photo editor DENA CUELLAR ([id number]) on 10/27/2020 3:16:43 PM Referred By: Confirmed By:CAROLINE ARTIS M.D.
[2020-10-28] MEDS: Magnesium Oxide 400 MG TAB PO SCH (09:56)
[2020-10-28] MEDS: Enoxaparin Sodium 40 MG/0.4 ML SYRINGE SC SCH (09:56)
[2020-10-28] MEDS: Metoprolol Tartrate 25 MG TAB PO SCH ×2 (09:57→20:28)
[2020-10-28] MEDS: Folic Acid 1 MG TAB PO SCH (09:57)
[2020-10-28] MEDS: Multivitamin W/ Minerals 1 TAB PO SCH (09:57)
[2020-10-28] MEDS: Thiamine 100 MG TAB PO SCH (09:57)
[2020-10-28] MEDS: Amlodipine 5 MG TAB PO SCH (09:57)
--- NOTE | 2020-10-28 15:27 | PDOC.HOSPP ---
- Subjective Encounter Date: 10/28/20 Encounter Time: 07:30 Subjective: Patient seen for follow-up regarding acute encephalopathy. He is more alert today, oriented to person and place. - Objective Vital Signs & Weight: Vital Signs (12 hours) Temp Pulse Resp BP BP Pulse Ox 10/28/20 12:00 125/83 10/28/20 11:22 98.2 F 89 20 125/83 94 L 10/28/20 08:00 125/86 10/28/20 07:11 98.3 F 97 20 125/86 97 10/28/20 04:22 98.3 F 93 16 131/83 99 Weight Admit Weight 120 lb Weight 120 lb I&O: 10/27/20 10/28/20 10/29/20 06:59 06:59 06:59 Intake Total 840 1500 Balance 840 1500 Result Diagrams: 10/25/20 05:25 10/26/20 05:30 Additional Labs: I reviewed patient's labs and MAR Hospitalist ROS - Review of Systems Cardiovascular: denies: chest pain, palpitations, orthopnea, paroxysmal noc. dyspnea, edema, light headedness Gastrointestinal: denies: nausea, vomiting, abdominal pain, diarrhea, constipation, melena, hematochezia - Medication Medications: Active Medications Generic Name Dose Route Start Last Admin Trade Name Freq PRN Reason Stop Dose Admin Amlodipine Besylate 10 mg 10/24/20 09:00 10/28/20 09:57 Amlodipine 5 Mg Tab PO 10 mg DAILY JOHN Administration Diazepam 5 mg 10/25/20 04:00 10/26/20 16:49 Diazepam 5 Mg Tab PO 5 mg Q4H PRN Administration FOR ASE 10 OR GREATER Enoxaparin Sodium 40 mg 10/24/20 09:00 10/28/20 09:56 Enoxaparin Sodium 40 Mg/0.4 Ml Syringe SC 40 mg 0900 JOHN Administration Folic Acid 1 mg 10/25/20 09:00 10/28/20 09:57 Folic Acid 1 Mg Tab PO 1 mg DAILY JOHN Administration Iron/Minerals/Multivitamins 1 tab 10/25/20 09:00 10/28/20 09:57 Multivitamin W/ Minerals 1 Tab PO 1 tab DAILY JOHN Administration Lorazepam 1 mg 10/24/20 12:34 10/27/20 00:27 Lorazepam 2 Mg/Ml Vial SLOW IVP 1 mg Q4H PRN Administration Seizures/AGITATION Magnesium Oxide 400 mg 10/25/20 09:00 10/28/20 09:56 Magnesium Oxide 400 Mg Tab PO 400 mg DAILY JOHN Administration Metoprolol Tartrate 25 mg 10/24/20 09:00 10/28/20 09:57 Metoprolol Tartrate 25 Mg Tab PO 25 mg BID JOHN Administration Pantoprazole Sodium 40 mg 10/24/20 09:00 10/28/20 09:57 Pantoprazole 40 Mg Tab PO 40 mg QAM JOHN Administration Thiamine HCl 100 mg 10/25/20 09:00 10/28/20 09:57 Thiamine 100 Mg Tab PO 100 mg DAILY JOHN Administration Hospitalist Exam Vitals: Vital Signs (12 hours) Temp Pulse Resp BP BP Pulse Ox 10/28/20 12:00 125/83 10/28/20 11:22 98.2 F 89 20 125/83 94 L 10/28/20 08:00 125/86 10/28/20 07:11 98.3 F 97 20 125/86 97 10/28/20 04:22 98.3 F 93 16 131/83 99 Weight Admit Weight 120 lb Weight 120 lb General Appearance: awake alert Eye: anicteric sclera ENT: moist mucosa Neck: supple Heart: RRR Respiratory: CTAB Gastrointestinal: soft, non-tender Skin: no rashes Psychiatric: normal affect, oriented to person, oriented to place Hosp A/P - Plan #Acute encephalopathy -Improving, etiology unclear, could be related to alcohol withdrawal. #Alcohol withdrawal - continue ASE protocol, -Continue thiamine, and folic acid #Seizures -Appreciate neurology service input Right leg weakness -PT consulted Hypokalemia -resolved Marcocytic anemia -Stable Hypertension -Monitor vital signs and titrate antihypertensives as needed. Likely home in 24 to 48 hours.
[2020-10-28 15:45] LABS: Hemoglobin 12.4 g/dL (14.0-18.0); Mean Corpuscular HGB CONC 33.5 g/dL (32.0-36.0); Mean Corpuscular Hemoglobin 34.1 pg (27.0-31.0); Mean Platelet Volume 8.3 fL (7.4-10.4); Platelet Count 184 thou/uL (130-400); RBC Distribution Width 13.7 % (11.5-14.5); Red Blood Cell (RBC) Count 3.63 mill/uL (4.70-6.10); White Blood Cell (WBC) Count 7.8 thou/uL (4.8-10.8)
[2020-10-28 16:00] LABS: Anion Gap 10 mmol/L (10-20); BUN (Urea Nitrogen) 11 mg/dL (8.9-20.6); Calc. Creatinine Clearance 94 mL/min (70-130); Calcium 9.4 mg/dL (7.8-10.44); Carbon Dioxide 31 mmol/L (22-29); Chloride 104 mmol/L (98-107); Glucose 105 mg/dL (70-105); Potassium 3.7 mmol/L (3.5-5.1); Sodium 141 mmol/L (136-145)
[2020-10-28 16:20] LABS: Lymphocytes 12 % (21-51); MDiff Complete? YES; Macrocytosis SLIGHT = 6-15 cells (100X) (0-5/hpf); Monocytes 26 % (0-10); Neutrophil 61 % (42-75); Platelet Morphology Comment Appears Adequate; Polychromasia SLIGHT = 2-3 cells (100X) (0-2/hpf); Reactive Lymphocytes 1 % (0-10)
[2020-10-29 05:50] LABS: Hemoglobin 11.4 g/dL (14.0-18.0); Mean Corpuscular HGB CONC 33.3 g/dL (32.0-36.0); Mean Corpuscular Volume 99.1 fL (78.0-98.0); Mean Platelet Volume 8.1 fL (7.4-10.4); Platelet Count 216 thou/uL (130-400); RBC Distribution Width 13.6 % (11.5-14.5); Red Blood Cell (RBC) Count 3.47 mill/uL (4.70-6.10); White Blood Cell (WBC) Count 7.5 thou/uL (4.8-10.8)
[2020-10-29 05:59] LABS: Anion Gap 15 mmol/L (10-20); BUN (Urea Nitrogen) 10 mg/dL (8.9-20.6); Calc. Creatinine Clearance 105 mL/min (70-130); Calcium 9.4 mg/dL (7.8-10.44); Carbon Dioxide 25 mmol/L (22-29); Chloride 107 mmol/L (98-107); Glucose 99 mg/dL (70-105); Potassium 3.6 mmol/L (3.5-5.1); Sodium 143 mmol/L (136-145)
[2020-10-29 06:17] LABS: Lymphocytes 22 % (21-51); MDiff Complete? YES; Monocytes 18 % (0-10); Neutrophil 58 % (42-75); Platelet Morphology Comment Appears Adequate; Reactive Lymphocytes 2 % (0-10)
[2020-10-29] MEDS ORDERED: traMADol HCl 50 MG TAB PO PRN (08:33)
[2020-10-29] MEDS: Folic Acid 1 MG TAB PO SCH (08:48)
[2020-10-29] MEDS: Magnesium Oxide 400 MG TAB PO SCH (08:48)
[2020-10-29] MEDS: Multivitamin W/ Minerals 1 TAB PO SCH (08:57)
[2020-10-29] MEDS: Thiamine 100 MG TAB PO SCH (08:57)
[2020-10-29] MEDS: Metoprolol Tartrate 25 MG TAB PO SCH (08:57)
[2020-10-29] MEDS: Enoxaparin Sodium 40 MG/0.4 ML SYRINGE SC SCH (08:58)
[2020-10-29] MEDS: Amlodipine 5 MG TAB PO SCH (10:01)
--- NOTE | 2020-10-29 14:58 | PDOC.DS.DS ---
Provider Date of Admission: 10/24/20 04:00 Date of Discharge: 10/29/20 Admitting Provider: Vinny Barreto MD Consultations: Neurology (Dr. Lainez) Primary Care Physician: Alea Burger APRN Course Hospital Course: Discharge diagnosis: 1. Alcohol withdrawal seizure 2. Hyponatremia 3. Hypokalemia 4. COVID-19 test negative 5. Hypertensive urgency Hospital course: Patient is a pleasant 45-year-old gentleman who was admitted to the hospital on October 24, 2020 because of his seizure. His blood pressures were found to be markedly elevated at that time. His blood alcohol level was not detectable. He was diagnosed with alcohol withdrawal seizure. He was placed on alcohol withdrawal protocol and benzodiazepines as needed. He was seen by neurology service. EEG was normal. MRI did not show any evidence of acute intracranial process. He subsequently developed agitation and extensive tremors, likely secondary to alcohol withdrawal. He improved in a couple of days. He was seen by physical therapy service. He is recommended outpatient physical therapy. I am providing him a prescription for the same as well as for a rolling walker. He is advised to stop alcohol use. Many thanks for allowing me to participate in your patient's care. Please feel free to contact me with any questions or concerns. Discharge destination: Home Total amount of time spent coordinating this discharge: 32 minutes Lab Results: 10/29/20 05:25 10/29/20 05:25 Abnormal Lab Results - Last 48 hrs 10/28/20 15:30: Carbon Dioxide 31 H 10/28/20 15:30: RBC 3.63 L, Hgb 12.4 L, Hct 36.9 L, MCV 102.0 H, MCH 34.1 H, Lymphocytes % (Manual) 12 L, Monocytes % (Manual) 26 H 10/29/20 05:25: Creatinine 0.68 L 10/29/20 05:25: RBC 3.47 L, Hgb 11.4 L, Hct 34.3 L, MCV 99.1 H, MCH 33.0 H, Monocytes % (Manual) 18 H Vitals: Vital Signs (12 hours) Temp Pulse Resp BP BP Pulse Ox 10/29/20 12:00 143/91 H 10/29/20 11:36 98.1 F 96 14 143/91 H 99 10/29/20 10:01 86 135/85 10/29/20 08:00 135/85 97 10/29/20 07:17 98.5 F 86 14 135/85 97 10/29/20 04:03 98.5 F 92 16 157/93 H 97 Weight Admit Weight 120 lb Weight 120 lb Physical Exam: The patient was seen and examined on the day of discharge. Patient denies chest pain or shortness of breath. Vital signs are stable. S1 and S2 are heard. Lungs are clear to auscultation bilaterally. Plan Prescriptions: Metoprolol Tartrate 25 mg PO BID #60 tab Amlodipine [Norvasc] 10 mg PO DAILY #30 tab Thiamine 100 mg PO DAILY #30 tab Home Medications: Medication Instructions Recorded Confirmed Type Pantoprazole [Protonix] 40 mg PO QAM #0 tab 04/11/15 10/24/20 Rx Amlodipine [Norvasc] 10 mg PO DAILY #30 tab 10/29/20 Rx Metoprolol Tartrate 25 mg PO BID #60 tab 10/29/20 Rx Thiamine 100 mg PO DAILY #30 tab 10/29/20 Rx Allergies: lisinopril Allergy (Verified 04/11/15 07:06) Discharge Instructions:: Stop alcohol use. Check your blood pressure and heart rate 3 times a day and shows readings to your primary care provider. Activity:: Activity as Tolerated Referrals: Alea Burger APRN [Primary Care Provider] - 3 Days Disposition: HOME Quality CORE MEASURES:: N/A
[2020-10-29 15:25] VITALS: TEMP 98
[2020-10-29 16:27] VITALS: BP 145/91
== END 2020-10-29 17:44 | disposition home or self-care (01) | DRG 897 ==
LOC: ERS 23:02 → ERHOLD 10-24 04:00 → SJJU 10-24 15:28
PROVIDERS: ADMIT Student in an Organized Health Care Education/Training Program; ATTEND Internal Medicine
PROC: HZ2ZZZZ Detoxification Services for Substance Abuse Treatment (ICD-10-PCS; principal; 2020-10-24)
DX: F10.139 Alcohol abuse with withdrawal, unspecified (principal); E87.1 Hypo-osmolality and hyponatremia; G93.49 Other encephalopathy; I10 Essential (primary) hypertension; R56.9 Unspecified convulsions; D53.9 Nutritional anemia, unspecified; E87.6 Hypokalemia; R53.1 Weakness; I16.0 Hypertensive urgency; Z20.822 Contact with and (suspected) exposure to COVID-19; Y90.0 Blood alcohol level of less than 20 mg/100 ml; Z88.8 Allergy status to other drugs, medicaments and biological substances
CPT/HCPCS: 36415; 70450; 70551; 71045; 80048; 80053; 80306; 80307; 82607; 82746; 84443; 85025; 87635; 93005; 95816; 95819; 95957; 96374; J1650; J1953; J2060; J3411; J3475; J3490; U0003; U0005

== ENCOUNTER 2021-03-11 15:47 | Observation (INO) | payer SELFPAY ==
[2021-03-11 16:36] LABS: #Basophils 0.1 thou/uL (0.0-0.2); #Lymphocytes 0.9 thou/uL (1.20-3.40); #Neutrophils 7.1 thou/uL (1.40-6.50); %Basophils 0.8 % (0.0-1.0); %Eosinophils 0.2 % (0.0-10.0); %Lymphocytes 10.1 % (21.0-51.0); %Neutrophils 77.8 % (42.0-75.0); Hemoglobin 14.1 g/dL (14.0-18.0); Mean Corpuscular HGB CONC 35.2 g/dL (32.0-36.0); Mean Corpuscular Hemoglobin 34.7 pg (27.0-31.0); Mean Corpuscular Volume 98.7 fL (78.0-98.0); Mean Platelet Volume 8.5 fL (7.4-10.4); Platelet Count 125 thou/uL (130-400); RBC Distribution Width 15.8 % (11.5-14.5); Red Blood Cell (RBC) Count 4.07 mill/uL (4.70-6.10); White Blood Cell (WBC) Count 9.2 thou/uL (4.8-10.8)
[2021-03-11 16:58] LABS: ALT (SGPT) 36 U/L (8-55); AST (SGOT) 93 U/L (5-34); Albumin 4.3 g/dL (3.5-5.0); Alkaline Phosphatase 148 U/L (40-110); Anion Gap 21 mmol/L (10-20); BUN (Urea Nitrogen) Less than 4 mg/dL (8.9-20.6); Calc. Creatinine Clearance 0 mL/min (70-130); Calcium 9.8 mg/dL (7.8-10.44); Carbon Dioxide 19 mmol/L (22-29); Chloride 98 mmol/L (98-107); Globulin 3.5 g/dL (2.4-3.5); Glucose 122 mg/dL (70-105); Potassium 3.6 mmol/L (3.5-5.1); Protein, Total 7.8 g/dL (6.0-8.3); Sodium 134 mmol/L (136-145)
[2021-03-11 17:08] LABS: Acetaminophen Less than 6.0 mcg/mL (10.0-30.0); Alcohol Less than 10 mg/dL (Less than 10); Lipase 40 U/L (8-78); Salicylate Less than 8.0 mg/dL (15.0-30.0)
[2021-03-11 17:36] LABS: Amphetamine Not Detected (NotDetected); Barbiturates Screen Not Detected (NotDetected); Benzodiazepine Screen Not Detected (NotDetected); Cocaine Metabolite Screen Not Detected (NotDetected); Medtox Control Line Valid? VALID (VALID); Medtox Reader # READER 1; Methadone Not Detected (NotDetected); Methamphetamine Not Detected (NotDetected); Opiate Screen Not Detected (NotDetected); Oxycodone Screen Not Detected (NotDetected); Phencyclidine (PCP) Not Detected (NotDetected); THC/Cannabinoid Screen Not Detected (NotDetected); Tricyclic Screen Not Detected (NotDetected)
[2021-03-11] MEDS ORDERED: Aspirin 325 MG TAB ONE (18:05)
[2021-03-11] MEDS ORDERED: Labetalol HCl 100 MG/20 ML VIAL SLOW IVP PRN (19:09)
[2021-03-11] MEDS ORDERED: cloNIDine 0.1 MG TAB PO PRN (19:11)
[2021-03-11] MEDS ORDERED: Lorazepam 1 MG TAB PO PRN (19:11)
[2021-03-11] MEDS ORDERED: Temazepam 15 MG CAP PO PRN (19:11)
[2021-03-11] MEDS ORDERED: Senokot S 8.6-50 MG TAB PO PRN (19:13)
[2021-03-11] MEDS ORDERED: Acetaminophen 325 MG TAB PO PRN (19:13)
[2021-03-11] MEDS ORDERED: Calcium Carbonate 500 MG ChewTAB PO PRN (19:13)
[2021-03-11] MEDS ORDERED: Ondansetron ODT 4 MG TAB PO PRN (19:13)
[2021-03-11] MEDS ORDERED: Ondansetron PF 4 MG/2 ML Vial IVP PRN (19:13)
[2021-03-11 19:46] LABS: Troponin I Less than 0.010 ng/mL (< 0.028)
[2021-03-11 20:49] VITALS: BMI 17.1
[2021-03-11] MEDS ORDERED: Thiamine 100 MG TAB PO SCH (21:00)
[2021-03-11] MEDS ORDERED: Multivit, Therapeutic 1 TAB PO SCH (21:00)
[2021-03-11] MEDS ORDERED: pyridOXINE 50 MG (B6) TAB PO SCH (21:00)
[2021-03-11] MEDS ORDERED: Folic Acid 1 MG TAB PO SCH (21:00)
[2021-03-11] MEDS ORDERED: Atorvastatin Calcium 10 MG TAB PO SCH (21:00)
[2021-03-11] MEDS: Metoprolol Tartrate 25 MG TAB PO SCH (21:03)
[2021-03-11] MEDS: cloNIDine 0.1 MG TAB PO SCH (21:03)
[2021-03-11] MEDS: Famotidine 20 MG TAB PO SCH (21:03)
[2021-03-12 00:34] LABS: SARS-CoV-2 PCR by NAA Not Detected (NotDetected)
[2021-03-12 05:02] LABS: #Basophils 0.1 thou/uL (0.0-0.2); #Lymphocytes 1.5 thou/uL (1.20-3.40); #Neutrophils 5.8 thou/uL (1.40-6.50); %Basophils 0.9 % (0.0-1.0); %Eosinophils 0.2 % (0.0-10.0); %Lymphocytes 17.6 % (21.0-51.0); %Monocytes 12.4 % (0.0-10.0); Hemoglobin 14.1 g/dL (14.0-18.0); INR-International Normal Ratio 0.9; Mean Corpuscular HGB CONC 32.4 g/dL (32.0-36.0); Mean Corpuscular Hemoglobin 31.9 pg (27.0-31.0); Mean Corpuscular Volume 98.3 fL (78.0-98.0); Mean Platelet Volume 9.3 fL (7.4-10.4); PTT 27.6 sec (22.9-36.1); Platelet Count 133 thou/uL (130-400); Prothrombin Time 12.5 sec (12.0-14.7); RBC Distribution Width 15.6 % (11.5-14.5); Red Blood Cell (RBC) Count 4.42 mill/uL (4.70-6.10); White Blood Cell (WBC) Count 8.4 thou/uL (4.8-10.8)
[2021-03-12 05:19] LABS: Anion Gap 18 mmol/L (10-20); BUN (Urea Nitrogen) 5 mg/dL (8.9-20.6); Calc. Creatinine Clearance 118 mL/min (70-130); Calcium 9.7 mg/dL (7.8-10.44); Carbon Dioxide 21 mmol/L (22-29); Cardiac Risk 2.1 (Less than 4.5); Chloride 97 mmol/L (98-107); Cholesterol 242 mg/dl (< 200 Desired); Glucose 94 mg/dL (70-105); HDL Cholesterol 113 mg/dL (>60 Neg Risk); LDL Cholesterol, Calculated 112 mg/dL; Magnesium 1.5 mg/dL (1.6-2.6); Phosphorus 3.9 mg/dL (2.3-4.7); Potassium 3.8 mmol/L (3.5-5.1); Sodium 132 mmol/L (136-145); Triglycerides 85 mg/dL (Less than 150)
[2021-03-12 05:23] LABS: Troponin I Less than 0.010 ng/mL (< 0.028)
[2021-03-12] MEDS ORDERED: Magnesium Sulfate 4 GM in Sodium Chloride 0.9% 250 ML 250 ML IVPB SCH (08:00)
[2021-03-12] MEDS: Famotidine 20 MG TAB PO SCH (08:23)
[2021-03-12] MEDS: Metoprolol Tartrate 25 MG TAB PO SCH (08:23)
[2021-03-12] MEDS: cloNIDine 0.1 MG TAB PO SCH ×2 (08:25→16:17)
[2021-03-12] MEDS ORDERED: Aspirin 81 mg Enteric Coated Tablet PO SCH (09:00)
[2021-03-12 11:40] VITALS: TEMP 97.7
[2021-03-12] MEDS ORDERED: BEER 1 CAN PO SCH ×2 (12:45→17:00)
[2021-03-12 23:18] VITALS: BP 113/90
== END 2021-03-12 17:15 | disposition home or self-care (01) ==
LOC: ERS 15:47 → INTOOBSV 18:19 → 2SE 18:19
PROVIDERS: ADMIT Internal Medicine; ATTEND Internal Medicine
DX: G93.40 Encephalopathy, unspecified (principal); R07.9 Chest pain, unspecified; I16.0 Hypertensive urgency; I10 Essential (primary) hypertension; I25.10 Atherosclerotic heart disease of native coronary artery without angina pectoris; E87.1 Hypo-osmolality and hyponatremia; E83.42 Hypomagnesemia; E78.5 Hyperlipidemia, unspecified; F10.20 Alcohol dependence, uncomplicated; F17.210 Nicotine dependence, cigarettes, uncomplicated; I08.1 Rheumatic disorders of both mitral and tricuspid valves; Z91.14 Patient's other noncompliance with medication regimen; Z79.82 Long term (current) use of aspirin; Z79.899 Other long term (current) drug therapy; Z88.8 Allergy status to other drugs, medicaments and biological substances; Z95.5 Presence of coronary angioplasty implant and graft; Z20.822 Contact with and (suspected) exposure to COVID-19; Y90.0 Blood alcohol level of less than 20 mg/100 ml
CPT/HCPCS: 36415; 70450; 70551; 71045; 80048; 80053; 80061; 80306; 80307; 83690; 83735; 84100; 84484; 85025; 85610; 85730; 90471; 90732; 93005; 93306; 94760; 95712; 95819; 95957; 96374; G0009; G0378; J3475; J7050; U0003; U0005

== ENCOUNTER 2021-10-04 10:09 | Emergency (ER) | payer SELFPAY ==
[2021-10-04] MEDS ORDERED: Acetaminophen 500 MG TAB ONE (11:32)
== END 2021-10-04 12:53 | disposition home or self-care (01) ==
LOC: ERS 10:09
DX: U07.1 COVID-19 (principal); I10 Essential (primary) hypertension; F17.210 Nicotine dependence, cigarettes, uncomplicated
CPT/HCPCS: 71045; 87804